=== PATIENT | male | born 1970 ===

== ENCOUNTER 2018-11-01 09:20 | Day surgery (SDC) | payer MEDICAID ==
[~2018-11-01] VITALS: Ht 170.2 cm; Wt 93.0 kg
[2018-11-01 10:14] VITALS: BP 101/74; Ht 170.2 cm; Wt 93.0 kg
[2018-11-01] MEDS ORDERED: HYDROCODON-ACE1 EA10 PO (12:43)
--- NOTE | 2018-11-01 17:26 | NUR ---
1450 PT COMPLAINS OF INCREASING PAIN, WORSE ON RIGHT. RATES PAIN AN 8. WILL ADMINISTER VICODIN BEFORE PATIENT DISCHARGED
--- NOTE | 2018-11-07 12:10 | OP ---
PATIENT NAME: GIANLUCA VUONG MEDICAL RECORD: [id number] :68 LOCATION:[facility] ADMISSION DATE: SURGEON: NANCY DUKES MD DATE OF OPERATION: 11/01/2018 PREOPERATIVE DIAGNOSIS: Bilateral carpal tunnel syndrome. POSTOPERATIVE DIAGNOSIS: Bilateral carpal tunnel syndrome. PROCEDURE: Bilateral carpal tunnel release. SURGEON: Nancy Dukes MD PRIVATE D[employer]Y NURSE: Charmaine Guerrero INTRAOPERATIVE COMPLICATIONS: None. SUMMARY OF PATHOLOGIC FINDINGS: The patient had very tight transverse carpal ligament consistent with the diagnosis of bilateral carpal tunnel syndrome. OPERATIVE SUMMARY IN DETAIL: After obtaining the appropriate preoperative orthopedic surgery consent as well as anesthetic consultation, evaluation, and clearance, the patient was brought to the operating room and placed on the operating table in the supine position. After adequate general laryngeal mask airway was administered, tourniquet was placed about the proximal aspect of the bilateral upper extremities. Bilateral upper extremities were then prepped and draped in a routine sterile fashion simultaneously. Right upper extremity was approached first. The arm was elevated and exsanguinated. Tourniquet was inflated to 250 mmHg. A mid palmar incision was taken down to the level of the transverse carpal ligament distally. This was identified and slightly incised. Median nerve was identified. Otho elevator was then placed over the median nerve and then further dissection was carried out. At this point, Leoti light knife was then utilized under direct visualization to release the entire transverse carpal ligament at the proximal wrist crease. Having completed this, wound was copiously irrigated and closed in usual fashion using 4-0 Prolene, done by Charmaine Guerrero. Attention was then turned to the left upper extremity. Left upper extremity was elevated and exsanguinated, and tourniquet was inflated to 250 mmHg. Again, mid palmar crease was taken down to the level of the distal transverse carpal ligament. It was again incised. Median nerve was identified. This is again a very tight transverse carpal ligament. Incision was carried gently out so that the Leonard light knife could then be used. The Leonard light knife was then used for complete release of the transverse carpal ligament under direct visualization to the proximal wrist crease. Again, the wound was irrigated and closed. Each area was infiltrated with 0.25% Marcaine plain. Sterile dressings were applied. Tourniquet was deflated in bilateral upper extremities. The patient was awakened and taken to the recovery room in stable condition. All final needle and sponge counts were correct. TRANSINT:[id number] Voice Confirmation ID: [id number] DOCUMENT ID: [id number] OPERATIVE REPORT [id number] GIANLUCA VUONG MD, NANCY GREGORY at 1210 CC: [id number] DICTATION DATE: 11/03/18928 DEFECTIVE CIGARETTE SLITTER: 11/03/18 1033 [facility] 11/01/18 [facility] [address] [place] [address]
== END 2018-11-01 15:10 | disposition home or self-care (01) ==
LOC: D.OPS 09:20 → D.PAN 10:45 → D.OPS 11:00 → D.PAN 15:45
PROVIDERS: ATTEND Orthopaedic Surgery
DX: G56.03 Carpal tunnel syndrome, bilateral upper limbs (principal)

== ENCOUNTER → 2018-12-03 15:26 | Outpatient (CLI) | payer MEDICAID ==
[2018-11-01 10:14] VITALS: BMI 32.2
[~2018-12-03 15:26] MED LIST: HYDROCODON-ACE1 EA10 PO
== END | disposition home or self-care (01) ==
LOC: D.MRI 14:30
PROVIDERS: ATTEND Orthopaedic Surgery
DX: M54.12 Radiculopathy, cervical region (principal)